=== PATIENT | male | born 1950 | race Caucasian/White ===

== ENCOUNTER 2019-10-15 06:36 | Emergency (ER) | payer MEDICARE, BC ==
[~2019-10-15] VITALS: Ht 160 cm; Wt 80.0 kg
[2019-10-15 06:42] VITALS: BP 164/84
[2019-10-15] MEDS ORDERED: AZIT-63 PO (07:11)
== END 2019-10-15 07:23 | disposition home or self-care (01) ==
LOC: ER 06:37
DX: R05 Cough (principal); J45.909 Unspecified asthma, uncomplicated; Z79.2 Long term (current) use of antibiotics
CPT/HCPCS: 99283

== ENCOUNTER 2022-05-30 10:54 | Emergency (ER) | payer MEDICARE, BC ==
[~2022-05-30] VITALS: Ht 160 cm; Wt 84.1 kg
[2022-05-30 11:19] VITALS: BP 133/81
[2022-05-30] MEDS ORDERED: PRED20TA PO (12:01)
[2022-05-30] MEDS ORDERED: CYCL-1 PO (12:01)
[2022-05-30] MEDS ORDERED: ketorolac tromethamine 15mg/ml inj. IM ONE (12:05)
== END 2022-05-30 12:41 | disposition home or self-care (01) ==
LOC: ER 10:55
DX: M94.0 Chondrocostal junction syndrome [Tietze] (principal); J45.901 Unspecified asthma with (acute) exacerbation; R05.9 Cough, unspecified; Z79.899 Other long term (current) drug therapy
CPT/HCPCS: 96372; 99283; J1885

== ENCOUNTER 2024-10-26 12:21 | Outpatient (CLI) | payer MEDICARE, BC ==
[~2024-10-26 12:21] MED LIST: CYCL-1 PO
== END 2024-10-26 23:59 | disposition home or self-care (01) ==
LOC: RAD 12:21
PROVIDERS: ATTEND Nurse Practitioner Family
DX: J44.9 Chronic obstructive pulmonary disease, unspecified (principal); I70.0 Atherosclerosis of aorta; R06.02 Shortness of breath; R06.09 Other forms of dyspnea; R06.01 Orthopnea
CPT/HCPCS: 71250